=== PATIENT | male | born 1980 | race American Indian/Alaskan Native ===

== ENCOUNTER 2017-03-20 07:45 | Emergency (ER) | payer BC ==
[2017-03-20 08:16] VITALS: RESP 16; TEMP 98; BMI 20.5
[2017-03-20] MEDS ORDERED: TDAP Vaccine 0.5 mL Syr IM ONE (08:18)
--- NOTE | 2017-03-20 08:24 | ED PDOC ---
Arrival/HPI - General Chief Complaint: Upper Extremity Problem/Injury Time Seen by Provider: 03/20/17 07:46 Historian: Patient - History of Present Illness Narrative History of Present Illness (Text): 03/20/17 08:21 36 year old male presents to the emergency department with right hand pain after mechanical fall last night. He states he cannot close his hand. Denies wrist or elbow pain. No associated symptoms. Denies alcohol use. Patient reports previous injury to the right hand years ago. Patient reports last tetanus unknown. Patient is right hand dominant. No head injury or LOC. PMD: Dr. Buchanan 03/20/17 16:06 Time/Duration: 24 hours Symptom Onset: Gradual Symptom Course: Unchanged Associated Symptoms (Text): None Past Medical History - Provider Review Nursing Documentation Reviewed: Yes - Psychiatric Hx Substance Use: No Family/Social History - Physician Review Nursing Documentation Reviewed: Yes Family/Social History: Unknown Family HX Smoking Status: Heavy Smoker > 10 Cigarettes Daily Hx Alcohol Use: Yes Frequency of alcohol use: Few days per week Hx Substance Use: No Allergies/Home Meds Allergies/Adverse Reactions: Allergies No Known Allergies Allergy (Verified 03/20/17 08:10) Review of Systems - Review of Systems Eyes: absent: Vision Changes Respiratory: absent: SOB Cardiovascular: absent: Chest Pain Musculoskeletal: Other (Right hand pain. No wrist or elbow pain.). absent: Back Pain, Neck Pain Neurological: absent: Headache, Dizziness Physical Exam Vital Signs Reviewed: Yes Vital Signs Temp Pulse Resp BP Pulse Ox 03/20/17 10:07 76 16 146/77 100 03/20/17 08:11 98 F 74 16 113/91 H 97 Temperature: Afebrile Blood Pressure: Normal Pulse: Regular Respiratory Rate: Normal Appearance: Positive for: Well-Appearing, Non-Toxic, Comfortable Pain Distress: None Mental Status: Positive for: Alert and Oriented X 3 - Systems Exam Upper Extremity: Present: Other (Right hand: Abrasion to 2nd right digit with no tenderness. Decreased sensation to 4th and 5th right digits. Tenderness to right hand on medial side with slight ecchymosis. No snuff box tenderness. Right wrist: Full ROM. Right elbow: Abrasion. Full ROM. ) Neurological: Present: GCS=15, CN II-XII Intact, Speech Normal, Motor Func Grossly Intact, Normal Sensory Function Psychiatric: Present: Alert, Oriented x 3, Normal Insight, Normal Concentration Medical Decision Making ED Course and Treatment: Impression: 36 year old male presents to the emergency department with right hand pain after mechanical fall last night. Differential Diagnosis included but are not limited to: Hand injury r/o fracture vs contusion Plan: -- XR right hand, XR right wrist -- Ibuprofen, Tdap -- Reassess and disposition Progress Notes: PROCEDURE: Right Hand Radiographs. R D Internship : Kimberly Rogers MD Report Date : 03/20/2017 09:00:50 IMPRESSION: Oblique nondisplaced fracture in the midshaft of the 4th metacarpal. PROCEDURE: Right Wrist Radiographs. R D Internship : Kimberly Rogers MD IMPRESSION: No acute fracture or dislocation. 03/20/17 10:[address] Gaines, states he will follow up. Patient was placed in an ulnar gutter splint by EMT Ken. No complications. Neurovascularly intact. Patient advised to take motrin and ice hand and to make sure to f/u with Dr. Betancourt this week. - RAD Interpretation Radiology Orders: 03/20/17 08:17 HAND RIGHT 3 VIEWS [RAD] Stat WRIST, RIGHT 3 VIEWS [RAD] Stat Organizational Consultant: Radiologist - Medication Orders Current Medication Orders: Discontinued Medications Ibuprofen (Motrin Tab) 600 mg PO STAT STA Stop: 03/20/17 08:19 Last Admin: 03/20/17 08:31 Dose: 600 mg Tetanus/Reduced Diphtheria/Acell Pertussis (Boostrix Vaccine Inj) 0.5 ml IM .ONCE ONE Stop: 03/20/17 08:19 Last Admin: 03/20/17 08:31 Dose: 0.5 ml - Scribe Statement The provider has reviewed the documentation as recorded by the Michael Sifuentes Provider Scribe Attestation: All medical record entries made by the Michael were at my direction and personally dictated by me. I have reviewed the chart and agree that the record accurately reflects my personal performance of the history, physical exam, medical decision making, and the department course for this patient. I have also personally directed, reviewed, and agree with the discharge instructions and disposition. Disposition/Present on Arrival - Present on Arrival Any Indicators Present on Arrival: No History of DVT/PE: No History of Uncontrolled Diabetes: No Urinary Catheter: No History of Decub. Ulcer: No History Surgical Site Infection Following: None - Disposition Have Diagnosis and Disposition been Completed?: Yes Diagnosis: Hand fracture, right Disposition: HOME/ ROUTINE Disposition Time: 10:30 Patient Plan: Discharge Condition: IMPROVED Discharge Instructions (ExitCare): Hand Fracture (ED) Additional Instructions: Mr Shore, thank you for letting us take care of you today. Your provider was Dr. Cifuentes. You were treated for Hand Fracture. The emergency medical care you received today was directed at your acute symptoms. If you were prescribed any medication, please fill it and take as directed. It may take several days for your symptoms to resolve. Return to the Emergency Department if your symptoms worsen, do not improve, or if you have any other problems. Make sure to call Dr. Betancourt, Hand Surgery/Orthopedics for an appointment. Keep splint on you hand until followup. Please contact your doctor or call one of the physicians/clinics you have been referred to that are listed on the Patient Visit Information form that is included in your discharge packet. Bring any paperwork you were given at discharge with you along with any medications you are taking to your follow up visit. Our treatment cannot replace ongoing medical care by a primary care provider (PCP) outside of the emergency department. Thank you for allowing the [facility] team to be part of your care today. If you had an X-Ray or CT scan: A Radiologist will review the ED reading if any change in treatment is needed we will contact you. If you had a blood, urine, or wound culture: It will take several days for the results, if any change in treatment is needed we will contact you. If you had an STI test: It will take 48 hours for the results. Please call after 1 week if you have not heard back. Prescriptions: Ibuprofen [Motrin] 600 mg PO Q6 PRN #30 tab PRN Reason: Pain, Moderate (4-7) Referrals: Arnav Betancourt MD [Staff Provider] - Follow up with primary Avery Buchanan MD [Primary Care Provider] - Follow up with primary Forms: [employer] (E[place]ian), WORK NOTE
--- NOTE | 2017-03-20 09:00 | RAD ---
PROCEDURE: Right Wrist Radiographs. HISTORY: fall r/o fx COMPARISON: None. FINDINGS: BONES: Bone alignment and mineralization are normal. There is no acute fracture or bone destruction. JOINTS: Normal. No dislocation. SOFT TISSUES: Normal. OTHER FINDINGS: None. IMPRESSION: No acute fracture or dislocation.
--- NOTE | 2017-03-20 09:02 | RAD ---
PROCEDURE: Right Hand Radiographs. HISTORY: fall r/o fx COMPARISON: None. FINDINGS: BONES: There is an oblique nondisplaced fracture in the midshaft of the 4th metacarpal. Bone alignment and mineralization are normal. JOINTS: Normal. No osteoarthritic changes. SOFT TISSUES: There is mild dorsal soft tissue swelling OTHER FINDINGS: None. IMPRESSION: Oblique nondisplaced fracture in the midshaft of the 4th metacarpal.
[2017-03-20 10:07] VITALS: BP 146/77; PULSE 76; O2SAT 100
== END 2017-03-20 10:30 | disposition home or self-care (01) ==
LOC: ED 07:45
DX: S62.354A Nondisplaced fracture of shaft of fourth metacarpal bone, right hand, initial encounter for closed fracture (principal); W19.XXXA Unspecified fall, initial encounter; Z23 Encounter for immunization; F17.210 Nicotine dependence, cigarettes, uncomplicated